=== PATIENT | male | born 1980 | race Two or more races ===

== ENCOUNTER 2017-10-10 09:46 | Outpatient (CLI) | payer OTHER | END 2017-10-10 10:08 | disposition home or self-care (01) | LOC: RAD 501 09:46 | DX: J44.9 Chronic obstructive pulmonary disease, unspecified (principal) ==

== ENCOUNTER → 2021-05-10 | Emergency (ER) | payer OTHER ==
[~2021-05-10] VITALS: Ht 172.7 cm; Wt 72.6 kg
== END | disposition left against medical advice (07) ==
LOC: ER 11:25
DX: Z53.21 Procedure and treatment not carried out due to patient leaving prior to being seen by health care provider (principal)